=== PATIENT | female | born 1960 | race Two or more races ===

== ENCOUNTER 2016-11-13 10:53 | Emergency (ER) | payer SELFPAY ==
[~2016-11-13] VITALS: Ht 154.9 cm; Wt 78.9 kg
[2016-11-13 11:01] VITALS: BP 187/85
[2016-11-13] MEDS ORDERED: cefTRIAXone SOD 1,000 MG VL IM ONE (12:15)
[2016-11-13] MEDS ORDERED: TETANUS-DIPTH-ACEL PERTUSSIS 0.5ML SYRG IM ONE (12:15)
== END 2016-11-13 12:38 | disposition home or self-care (01) ==
LOC: ER 10:59
DX: S61.031A Puncture wound without foreign body of right thumb without damage to nail, initial encounter (principal); S50.811A Abrasion of right forearm, initial encounter; Z88.5 Allergy status to narcotic agent; W55.01XA Bitten by cat, initial encounter; Y93.89 Activity, other specified; Y92.89 Other specified places as the place of occurrence of the external cause; Y99.8 Other external cause status
CPT/HCPCS: 90471; 90715; 96372; 99284; J0696

== ENCOUNTER 2016-11-15 10:37 | Emergency (ER) | payer SELFPAY ==
[~2016-11-15] VITALS: Ht 154.9 cm; Wt 78.9 kg
[2016-11-15 10:46] VITALS: BP 169/85
== END 2016-11-15 12:00 | disposition home or self-care (01) ==
LOC: ER 10:37
DX: S61.031D Puncture wound without foreign body of right thumb without damage to nail, subsequent encounter (principal); Z88.6 Allergy status to analgesic agent; X58.XXXD Exposure to other specified factors, subsequent encounter

== ENCOUNTER 2016-12-02 14:34 | Emergency (ER) | payer MEDICAID, OTHER ==
[~2016-12-02] VITALS: Ht 154.9 cm; Wt 78.9 kg
[2016-12-02 14:59] VITALS: BP 177/89
== END 2016-12-02 16:17 | disposition home or self-care (01) ==
LOC: ER 14:52
DX: S62.324A Displaced fracture of shaft of fourth metacarpal bone, right hand, initial encounter for closed fracture (principal); M19.90 Unspecified osteoarthritis, unspecified site; I10 Essential (primary) hypertension; G89.29 Other chronic pain; M54.5 Low back pain; Z88.6 Allergy status to analgesic agent; Z76.0 Encounter for issue of repeat prescription; V49.59XA Passenger injured in collision with other motor vehicles in traffic accident, initial encounter; Y93.89 Activity, other specified; Y99.8 Other external cause status; Y92.410 Unspecified street and highway as the place of occurrence of the external cause
CPT/HCPCS: 29125; 73130

== ENCOUNTER → 2018-03-23 00:21 | Emergency (ER) | payer MEDICAID ==
[~2018-03-23] VITALS: Ht 154.9 cm; Wt 78.5 kg
[2018-03-23 01:57] LABS: Urine Bacteria FEW /hpf (None Seen); Urine Blood Negative /uL (Negative); Urine WBC 4 /hpf (0 - 5)
[2018-03-23 03:15] LABS: Basophils # (auto) 0 uL; Basophils % (auto) 0.2 % (0.0-2.0); Eosinophils # (auto) 0.2 uL; Eosinophils % (auto) 1.9 % (0.0-7.0); Hematocrit 42.9 % (36.0-46.0); Hemoglobin 14.4 g/dL (12.2-16.2); Lymphocytes # (auto) 2.3 uL; Lymphocytes % (auto) 21.5 % (10.0-50.0); Mean Corpuscular Hgb Conc. 33.6 g/dL (32.0-36.0); Mean Corpuscular Volume 92.4 fL (80.0-100.0); Monocytes # (auto) 0.4 uL; Neutrophils # (auto) 7.8 uL; Neutrophils % (auto) 72.4 % (37.0-80.0); Platelet Count (auto) 251 10^3/uL (140-450); Red Blood Cells 4.64 10^6/uL (4.0-5.20); Red Cell Distribution Width 13.4 % (11.8-14.3); White Blood Cell 10.8 10^3/uL (4.4-10.8)
[2018-03-23 03:16] VITALS: BP 124/75
[2018-03-23 03:24] LABS: Albumin 4.1 g/dL (3.4-5.0); Anion Gap 8 (5-15); Blood Urea Nitrogen 18 mg/dL (7-18); Carbon Dioxide 28 mmol/L (21-32); Chloride 101 mmol/L (98-107); Glucose 184 mg/dL (74-106); Potassium 4.1 mmol/L (3.5-5.1); Sodium 137 mmol/L (136-145)
[2018-03-23 03:31] LABS: Alanine Aminotransferase 42 U/L (13-56); Alkaline Phosphatase 85 U/L (45-117); Aspartate Aminotransferase 21 U/L (15-37); BUN/Creatinine Ratio 19.1; Bilirubin, Total 0.4 mg/dL (0.2-1.0); GFR African American 79 mL/min; GFR Non-African American 65 mL/min; Total Protein 8.6 g/dL (6.4-8.2)
== END | disposition home or self-care (01) ==
LOC: ER 00:21
DX: E11.649 Type 2 diabetes mellitus with hypoglycemia without coma (principal); M19.90 Unspecified osteoarthritis, unspecified site; I10 Essential (primary) hypertension; Z88.6 Allergy status to analgesic agent
CPT/HCPCS: 36415; 80053; 81001; 82962; 83735; 84484; 85025; 93005

== ENCOUNTER 2018-09-15 11:13 | Emergency (ER) | payer MEDICAID, OTHER ==
[~2018-09-15] VITALS: Ht 157.5 cm; Wt 77.1 kg
[2018-09-15 14:26] VITALS: BP 139/76
[2018-09-15] MEDS ORDERED: METHOCARBAMOL 500 MG TAB PO ONE (15:15)
[2018-09-15] MEDS ORDERED: KETOROLAC TROMETH 60MG/2ML VIAL IM ONE (15:15)
== END 2018-09-15 16:40 | disposition home or self-care (01) ==
LOC: EDBD 11:13 → ER 11:21
DX: S00.83XA Contusion of other part of head, initial encounter (principal); S80.01XA Contusion of right knee, initial encounter; M54.5 Low back pain; E11.9 Type 2 diabetes mellitus without complications; I10 Essential (primary) hypertension; Z88.5 Allergy status to narcotic agent; Z88.8 Allergy status to other drugs, medicaments and biological substances; W01.198A Fall on same level from slipping, tripping and stumbling with subsequent striking against other object, initial encounter; Y93.89 Activity, other specified; Y99.0 Civilian activity done for income or pay; Y92.89 Other specified places as the place of occurrence of the external cause
CPT/HCPCS: 72100; 96372; 99283; J1885

== ENCOUNTER 2019-05-23 11:55 | Emergency (ER) | payer MEDICAID, OTHER ==
[~2019-05-23] VITALS: Ht 154.9 cm; Wt 35.8 kg
[2019-05-23 12:36] VITALS: BP 142/72
== END 2019-05-23 13:28 | disposition home or self-care (01) ==
LOC: ER 11:55
DX: N81.4 Uterovaginal prolapse, unspecified (principal); K59.00 Constipation, unspecified; E11.9 Type 2 diabetes mellitus without complications; I10 Essential (primary) hypertension; Z88.6 Allergy status to analgesic agent
CPT/HCPCS: 81002